=== PATIENT | female | born 1955 | race Caucasian/White ===

== ENCOUNTER 2017-02-01 00:14 | Emergency (ER) | payer BC ==
[~2017-02-01] VITALS: Ht 170.2 cm; Wt 73.7 kg
[~2017-02-01 00:14] MED LIST: ASPIRIN81 M1 PO; BENICAR HCT 201 EACH PO; JANUMET 50/51 TABLET PR; VYTORIN 10/21 TABLET PR
[2017-02-01 00:21] VITALS: BP 143/84
[2017-02-01] MEDS ORDERED: AUGMENTIN875 MG PO (00:49)
[2017-02-01] MEDS ORDERED: INDOCIN50 MG PO (00:49)
[2017-02-01] MEDS ORDERED: LIDOCAINE20 MG/1 M5 PO (00:49)
== END 2017-02-01 01:07 | disposition home or self-care (01) ==
LOC: EME 00:14
DX: K08.89 Other specified disorders of teeth and supporting structures (principal); K02.9 Dental caries, unspecified; I10 Essential (primary) hypertension; E78.00 Pure hypercholesterolemia, unspecified; E11.9 Type 2 diabetes mellitus without complications; Z79.84 Long term (current) use of oral hypoglycemic drugs; Z79.82 Long term (current) use of aspirin; F17.200 Nicotine dependence, unspecified, uncomplicated
CPT/HCPCS: 99281; 99284

== ENCOUNTER 2017-05-08 18:15 | Emergency (ER) | payer OTHER ==
[~2017-05-08] VITALS: Ht 171.4 cm; Wt 74.3 kg
[~2017-05-08 18:15] MED LIST changes: +AUGMENTIN875 MG PO; +INDOCIN50 MG PO; +LIDOCAINE20 MG/1 M5 PO
[2017-05-08 18:25] VITALS: BP 144/78
[2017-05-08] MEDS ORDERED: FENOFIBRATE40 MG PO (19:40)
[2017-05-08] MEDS ORDERED: FLEXERIL10 MG PO (20:24)
[2017-05-08] MEDS ORDERED: LIDODERM 5% P1 PATCH TD (20:24)
[2017-05-08] MEDS ORDERED: PREDNISONE20 MG PO (20:25)
[2017-05-08 20:46] LABS: AMPHETAMINE NEGATIVE (500 ng/mL); BARBITURATES NEGATIVE (200 ng/mL); BENZODIAZEPINES NEGATIVE (150 ng/mL); COCAINE NEGATIVE (150 ng/mL); INTERNAL CONTROLS VALID? YES; METHADONE NEGATIVE (200 ng/mL); METHAMPHETAMINE NEGATIVE (500 ng/mL); OPIATES (MORPHINE) NEGATIVE (100 ng/mL); OXYCODONE NEGATIVE (100 ng/mL); PHENCYCLIDINE NEGATIVE (25 ng/mL); PROPOXYPHENE NEGATIVE (300 ng/mL); THC CANNABINOIDS NEGATIVE (50 ng/mL); TRICYCLIC ANTIDEPRESSANTS NEGATIVE (300 ng/mL)
== END 2017-05-08 21:12 | disposition home or self-care (01) ==
LOC: EME 18:15
PROVIDERS: Nurse Practitioner Family
DX: M54.6 Pain in thoracic spine (principal); M62.830 Muscle spasm of back; W17.89XA Other fall from one level to another, initial encounter; E11.9 Type 2 diabetes mellitus without complications; I10 Essential (primary) hypertension; E78.00 Pure hypercholesterolemia, unspecified; F17.200 Nicotine dependence, unspecified, uncomplicated
CPT/HCPCS: 72070; 99281; 99284; J7512